=== PATIENT | male | born 1965 | race Caucasian/White ===

== ENCOUNTER 2017-09-23 22:23 | Emergency (ER) | payer OTHER ==
[~2017-09-23] VITALS: Ht 188 cm; Wt 81.8 kg
[2017-09-23] MEDS ORDERED: ZESTRIL10 M1 PO (22:46)
[2017-09-23 23:27] LABS: EOS # 0.2 (0.04-0.40); EOS % 3.8 % (0.0-4.0); HEMATOCRIT 44.8 % (42.0-52.0); HEMOGLOBIN 14.9 g/dL (13.5-18.0); LYMPH# 1.7 (1.50-4.00); MEAN CELL VOLUME 87 fl (78-100); MEAN CORPUSCULAR HEMOGLOBIN 29 pg (27-31); MEAN CORPUSCULAR HGB CONC 33 g/dL (33-37); MEAN PLATELET VOLUME 10.6 fl (7.4-10.4); MONO # 0.6 (0.20-0.80); NEU # 3.6 (1.40-6.50); PLATELET COUNT 238 K/mm3 (130-400); RED BLOOD COUNT 5.16 M/mm3 (4.20-5.60); RED CELL DISTRIBUTION WIDTH 12.6 % (11.5-14.5); WHITE BLOOD COUNT 6.1 K/mm3 (4.8-10.8)
[2017-09-23 23:38] LABS: ALBUMIN 4.2 g/dL (3.5-5.0); BUN/CREATININE RATIO 19.3 (6.0-26.0); CALCIUM 9.1 mg/dL (8.4-10.2); POTASSIUM 3.7 mmol/L (3.6-5.0); TOTAL BILIRUBIN 0.5 mg/dL (0.2-1.3); TOTAL PROTEIN 7.5 g/dL (6.3-8.2)
[2017-09-24 00:15] VITALS: BP 130/90
== END 2017-09-24 00:15 | disposition home or self-care (01) ==
LOC: ED 22:23
PROVIDERS: Family Medicine
DX: R07.89 Other chest pain (principal); I10 Essential (primary) hypertension

== ENCOUNTER → 2018-02-19 | Day surgery (SDC) | payer OTHER ==
[~2018-02-19] MED LIST: ZESTRIL10 M1 PO
== END ==
LOC: MSO 07:29
DX: Z12.11 Encounter for screening for malignant neoplasm of colon (principal); Z86.010 Personal history of colon polyps; I10 Essential (primary) hypertension; Z79.899 Other long term (current) drug therapy; Z87.891 Personal history of nicotine dependence; K57.30 Diverticulosis of large intestine without perforation or abscess without bleeding; K63.5 Polyp of colon
CPT/HCPCS: 00811; J2704; J3010; J7120

== ENCOUNTER → 2018-11-01 | Outpatient (CLI) | payer OTHER ==
[~2018-11-01] VITALS: Ht 182.9 cm; Wt 87.3 kg
[2018-11-01 14:23] VITALS: BP 140/86
== END ==
LOC: AMSURD 14:09
DX: Z00.00 Encounter for general adult medical examination without abnormal findings (principal); I10 Essential (primary) hypertension; Z23 Encounter for immunization; D12.5 Benign neoplasm of sigmoid colon

== ENCOUNTER → 2018-12-02 | Outpatient (CLI) | payer OTHER ==
[2018-11-01 14:23] VITALS: BP 140/86
[2018-12-02 17:13] LABS: CALCIUM 9.9 mg/dL (8.4-10.2); POTASSIUM 4.3 mmol/L (3.6-5.0)
== END ==
LOC: LAB 16:36
PROVIDERS: Family Medicine
DX: I10 Essential (primary) hypertension (principal)

== ENCOUNTER → 2019-02-11 | Outpatient (CLI) | payer OTHER ==
[2018-11-01 14:23] VITALS: BP 140/86
== END ==
LOC: LAB 07:32 → RAD 07:32
DX: S52.121A Displaced fracture of head of right radius, initial encounter for closed fracture (principal); M25.421 Effusion, right elbow

== ENCOUNTER → 2019-10-15 | Outpatient (CLI) | payer OTHER ==
[2018-11-01 14:23] VITALS: BP 140/86
== END ==
LOC: RAD 06:56
DX: H81.91 Unspecified disorder of vestibular function, right ear (principal)
CPT/HCPCS: A9585

== ENCOUNTER → 2019-11-18 | Outpatient (CLI) | payer OTHER ==
[2018-11-01 14:23] VITALS: BP 140/86
== END ==
LOC: LAB 16:11
DX: M70.31 Other bursitis of elbow, right elbow (principal)

== ENCOUNTER → 2020-08-24 | Outpatient (CLI) | payer OTHER ==
[2018-11-01 14:23] VITALS: BP 140/86
== END ==
LOC: RAD 13:26
DX: S62.630A Displaced fracture of distal phalanx of right index finger, initial encounter for closed fracture (principal)

== ENCOUNTER → 2020-12-01 | Outpatient (CLI) | payer OTHER ==
[2018-11-01 14:23] VITALS: BP 140/86
== END ==
LOC: LAB 09:23
DX: R30.9 Painful micturition, unspecified (principal)

== ENCOUNTER → 2021-10-31 | Outpatient (CLI) | payer OTHER ==
[2021-10-31 10:28] LABS: BASO # 0.03 K/mm3 (0.02-0.10); EOS # 0.16 K/mm3 (0.04-0.40); EOS % 3.4 % (0.0-4.0); HEMATOCRIT 46.4 % (42.0-52.0); HEMOGLOBIN 15.8 g/dL (13.5-18.0); LYMPH# 1.58 K/mm3 (1.50-4.00); MEAN CELL VOLUME 88 fl (78-100); MEAN CORPUSCULAR HEMOGLOBIN 30 pg (27-31); MEAN CORPUSCULAR HGB CONC 34 g/dL (33-37); NEU # 2.46 K/mm3 (1.40-6.50); PLATELET COUNT 244 K/mm3 (130-400); RED BLOOD COUNT 5.27 M/mm3 (4.20-5.60); RED CELL DISTRIBUTION WIDTH 11.9 % (11.5-14.5); WHITE BLOOD COUNT 4.6 K/mm3 (4.8-10.8)
== END ==
LOC: LAB 08:41
PROVIDERS: Family Medicine
DX: I10 Essential (primary) hypertension (principal); D75.839 Thrombocytosis, unspecified